=== PATIENT | male | born 1975 | race Caucasian/White ===

== ENCOUNTER 2016-10-28 20:55 | Emergency (ER) | payer BC ==
[~2016-10-28] VITALS: Wt 67.0 kg
[~2016-10-28 20:55] MED LIST: BEN25 PO; IBUP-1542 PO; ULT50 PO
--- NOTE | 2016-10-28 23:26 | ERD ---
ER Documentation Chief Complaint Date/Time DATE: 10/28/16 TIME: 23:24 Chief Complaint right arm pain previously injured through work HPI 40-year-old male otherwise healthy complains of right arm foreign pain that started approximately 4 weeks ago. 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 His pain has improved however he continues to go to work and pain is exacerbated afterwards. It is described as sharp, burning in the right forearm and radiates towards his elbow as well as his rest. He denies any fevers or chills or trauma. ROS All systems reviewed and are negative except as per history of present illness. Medications Home Meds Active Scripts Tramadol HCl (Tramadol HCl) 50 Mg Tablet, 50 MG PO Q4 Y for PAIN, #20 TAB Prov:JUSTINE CRABTREE PA-C 10/29/16 Diphenhydramine Hcl* (Benadryl*) 25 Mg Cap, 25 MG PO Q6 Y for ITCHING/RASH, #30 TAB Prov:REMINGTON CHARLES NP 07/10/16 Tramadol HCl (Tramadol HCl) 50 Mg Tablet, 50 MG PO Q6 Y for SEVERE PAIN LEVEL 7- 10, #20 TAB Prov:REMINGTON CHARLES [employer] REPRESENTATIVE 07/10/16 Ibuprofen* (Motrin*) 600 Mg Tab, 600 MG PO Q6H Y for PAIN AND OR ELEVATED TEMP, #30 TAB Prov:REMINGTON CHARLES [employer] REPRESENTATIVE 07/10/16 Allergies Allergies: Coded Allergies: Pollen Extracts (Verified Allergy, Mild, ICHY, 10/10/08) PMhx/Soc Medical and Surgical Hx: pt denies Medical Hx, pt denies Surgical Hx History of Surgery: No Anesthesia Reaction: No Hx Neurological Disorder: No Hx Respiratory Disorders: No Hx Cardiac Disorders: No Hx Psychiatric Problems: No Hx Miscellaneous Medical Probl: No Hx Alcohol Use: No Hx Substance Use: No Hx Tobacco Use: No Smoking Status: Never smoker Physical Exam Vitals Vital Signs Date Time Temp Pulse Resp B/P Pulse Ox O2 Delivery O2 Flow Rate FiO2 10/28/16 21:18 98.0 73 20 126/87 97 Physical Exam General: Well-developed, well-nourished. The patient appears in no acute distress. HEENT: Head is normocephalic, atraumatic. No scleral icterus. Neck: Supple. Nontender. Lungs: Clear to auscultation. Normal air movement. Heart: Regular rate and rhythm. S1 and S2 are normal. No murmurs, gallops, or rubs. Abdomen: Nondistended. Extremities: No bony deformities to the right upper extremity, full range of motion of the shoulder elbow and wrist joints, radian, ulnar, median nerve intact bilaterally, there is no swelling, distal pulses 2+ bilaterally. Capillary refill less than 2 seconds. Neurologic: Alert and oriented 3. No focal deficits. Normal speech and gait. Skin: Normal turgor. No rash or lesions. Results 24 hrs Current Medications Medications (Trade) Dose Ordered Sig/Dina Route PRN Reason Start Time Stop Time Status Last Admin Dose Admin Tramadol HCl (Ultram) 50 mg ONCE ONCE PO 10/28/16 23:30 10/28/16 23:31 DC 10/28/16 23:26 PROCEDURE: XR forearm. CLINICAL INDICATION: Trauma TECHNIQUE: AP and lateral views of the right forearm were performed. COMPARISON: There are no similar studies submitted for comparison. FINDINGS: There is normal bone mineralization.There is no acute fracture or dislocation.No osseous lesion is identified. IMPRESSION: No acute fracture or dislocation. RPTAT: HIKT .Morgan Mckeon MD, MD Date Time Electronically viewed and signed by .Morgan Mckeon MD, MD on 10/29/2016 01:13 Procedures/MDM ED course: He was given tramadol for pain. Patient's right wrist was splinted with a velcro wrist splint . MDM: 40-year-old male comes in with tendinitis of the right wrist. Differentials include fracture, dislocation, osteomyelitis, abscess, cellulitis. X-rays are unremarkable. He has had this pain for several weeks on it and it improved previously with other medications including anti- inflammatories. I have advised patient to rest, he will be given a work note and will be given a short course of tramadol for pain. Departure Diagnosis: Primary Impression: Right wrist tendonitis Condition: Good JUSTINE CRABTREE PA-C Oct 28, 2016 23:26
[2016-10-28] MEDS ORDERED: traMADol 50 MG TAB PO ONE (23:30)
[2016-10-29] MEDS ORDERED: ULT50 PO (00:30)
--- NOTE | 2016-10-29 01:14 | RADRPT ---
PROCEDURE: XR forearm. CLINICAL INDICATION: Trauma TECHNIQUE: AP and lateral views of the right forearm were performed. COMPARISON: There are no similar studies submitted for comparison. FINDINGS: There is normal bone mineralization.There is no acute fracture or dislocation.No osseous lesion is i dentified. IMPRESSION: No acute fracture or dislocation. RPTAT: HIKT .Morgan Mckeon MD, MD Date Time Electronically viewed and signed by .Morgan Mckeon MD, MD on 10/29/2016 01:13 .T/
[2016-10-29 01:31] VITALS: BP 120/89; PULSE 78; RESP 18; TEMP 98.3
== END 2016-10-29 01:32 | disposition home or self-care (01) ==
LOC: FTE 20:55
DX: M77.8 Other enthesopathies, not elsewhere classified (principal)
CPT/HCPCS: 29125; 73090; 99283; Z7610

== ENCOUNTER 2017-11-29 09:50 | Emergency (ER) | END 2017-11-29 11:06 | disposition home or self-care (01) ==

== ENCOUNTER 2018-07-26 18:23 | Emergency (ER) | END 2018-07-26 19:52 | disposition home or self-care (01) ==

== ENCOUNTER 2019-07-01 21:43 | Emergency (ER) | payer BC ==
[~2019-07-01] VITALS: Ht 172.7 cm; Wt 72.2 kg
[~2019-07-01 21:43] MED LIST changes: +AMOX1TAB10 PO; +CYCL10TA7 PO; +FLUT9.9S NASAL; +HYDR-842 PO; +MECL12.574 PO; +MULTI PO; +NAPR-985 PO; +OXYM15SP11 NASAL; +TRAM50TA2 PO; -ULT50 PO
[2019-07-01 21:50] VITALS: BP 124/71; PULSE 64; RESP 16; Ht 172.7 cm; Wt 72.2 kg
== END 2019-07-02 01:57 | disposition home or self-care (01) ==
LOC: FTE 21:43
DX: F41.9 Anxiety disorder, unspecified (principal)
CPT/HCPCS: 71045; 80053; 82962; 84484; 85025; 93005; Z7502